=== PATIENT | male | born 1965 | race Caucasian/White ===

== ENCOUNTER → 2017-12-12 | Day surgery (SDC) | payer OTHER ==
[~2017-12-12] VITALS: Ht 180.3 cm; Wt 149.7 kg
--- NOTE | 2017-12-13 13:50 | Operative Report ---
Operative/Inv Procedure Report Surgery Date: 12/12/17 Name of Procedure: Open repair of giant incarcerated left inguinal scrotal hernia with Bard PerFix large plug and patch Pre-Operative Diagnosis: Incarcerated left inguinal scrotal hernia with hydrocele. Morbid obesity Post-Operative Diagnosis: Same, but no significant hydrocele identified Estimated Blood Loss: scant Surgeon/Emergency Dept Tech: Rosana GERBER,Stef Bowman PAC Anesthesia: general endotracheal tube, block, local half percent Marcaine plain IV Fluids: 1800 mL crystalloid Implants: Bard large PerFix plug and patch Drains: None Specimens: Hernia contents fat Complications: None Condition: Stable excellent Operative Indication: Harsha is a 52-year-old morbidly obese gentleman (BMI 46) with a long-standing left inguinal bulge extending down into the scrotum. Preop imaging with ultrasound suggested there was a rather small hernia component and a rather large hydrocele component although this was called into question given that the testicle itself was easily palpable. He comes in the operating room for a dual approach with myself and Dr. Josue. Operative/Procedure Note Note: The patient is taken to the operating room placed on the operating table supine position. Following an awake timeout he underwent a difficult glide scope requiring endotracheal intubation and even with this had a lot of floppy tissue around the cords making a challenging. His arms were extended out to the side and Venodyne boots in place and received IV Ancef 3 g right skin incisions. A tap block bilaterally was placed by anesthesia with ultrasound guidance. The lower abdomen both groins and all the genitalia was now prepped widely with Betadine gel prep and draped in usual sterile fashion and we draped out the genitalia initially. Now local anesthetic was infiltrated over the course of the planned incision in the left groin. Given the patient's size and the size of the hernia was difficult to know the bony landmarks. Incision was placed along the lines of Diane just inferior to where we could construe the course of the inguinal ligament to be. We carried incision down through subcutaneous And divided the superficial epigastric vessels with ligatures of 3-0 Vicryl. Fede 's fascia was now divided and we could appreciate the external like aponeurosis and were happy with our location of our incision. The patient's size required multiple retractors to be placed in order to see and reach the depth of the abdominal wall. I opened the fascia of the external Bleich lateral to the external ring and then down through the ring itself splitting the cremasterics I created a flap superiorly and inferiorly on the external Bleich and we could appreciate the ilioinguinal nerve coursing down onto the cremasterics on the cord. After splitting the cremasterics more widely we dissected the ilioinguinal nerve off and retracted with a vessel loop. Now splitting the cremasterics more fully inferiorly we can we could begin to appreciate the bulk of the hernia mass and began to reduce it up out of the upper scrotum using some manual compression externally and with some traction and dissection off the back of the cremasterics circumferentially. We were able to deliver up a large mass of fat and found this to be all hernia contents and no real hydrocele. To be sure we deliver the testicle up with the cord leaving it attached age gubernaculum and scrotal attachments and found there was no hydrocele. To facilitate dissection we left the testicle up in the field and we could appreciate the cord more easily. The cord was difficult to distinguish from the bulk of the fatty mass but gradually working backwards from the testicle were able to safely dissected the entirety of the cord off of the fatty mass. The fatty mass seemed to be retroperitoneal fat did not encounter any hernia sac but did have a look and feel of omentum. We dissected this all the way back up to the inguinal floor where it seemed to be coming through widely dilated internal ring. Interestingly the spermatic duct had been from the cord probably from the chronic herniation and we identified this separately dissecting it off of the bulk of the hernia contents and then looped all the cord together with a Soren drain area we could appreciate the genitofemoral nerve along the inguinal floor heading towards the tubercle. We now isolated the large fatty mass down to the neck of the internal ring and made several attempts to reduce this with the patient in more steep Trendelenburg position. After several attempts revealed this was likely retroperitoneal fat and therefore did not have a very vacant space in the abdomen. Since it was only fat we decided to amputate the bulk of this which we did with the LigaSure impact device. We did this in pieces working carefully to be sure there is no sliding component of hernia or any rectal peritoneal structure such as ureter. We were careful not to injure the cord. Once having completed this amputation we sent this specimen as hernia contents. The stump now the amputated fat easily reduced back through the internal internal ring and I began to dissect around the margins of the internal ring. Here I could see the epigastric vessels medially which had been pushed right up against the edge of the rectus. There was there was a minimal albeit intact direct without herniation. I placed a large Bard PerFix plug into the internal ring and secured at their with sutures of 0 Vicryl. This was done to the conjoined tendon superiorly laterally to the internal Bleich cremasterics remnant that had been amputated off and medially to the edge of the rectus with care taken to avoid the epigastric vessels. We cleared off the back of the inguinal ligament to appreciate the shelving edge. The cord was exiting behind the mesh the posterior sutures were difficult to place but was able to manage one suture to the shelving edge fascia as it seemed that the plug was trying to be pushed out posteriorly. This helped significantly get the mesh in place nicely for the remainder of the procedure. The fascia over the pubic tubercle was now dissected away with care taken to avoid injury to the genitofemoral neurovascular bundle. A patch was now placed overlapping the tubercle and secured with 2-0 Maxon suture to the fascia over the tubercle and then entered with interrupted sutures to the shelving edge of the inguinal ligament. I was able to palpate the location of the iliac vessels so as to avoid injury injuring them with suturing. Genitofemoral nerve exited out between the first and second sutures. The cord was now placed through the keyhole of the mesh along with the ilioinguinal nerve spattered it well and the mesh then secured superior medially to the rectus fascia with the same 2-0 Maxon suture and into the and then laterally to the conjoined tendon. More medially was difficult separate the external oblique off the underlying internal oblique to rather than risk injury to the any underlying nerve I secured them mesh just to the external oblique. This regard we did not close the external oblique. The tails of the mesh overlapped nicely laterally these were tucked under the edge of the split of the external oblique and secured to the lateral fascia again avoiding nerve. The testicle was returned to its usual position in the scrotum by Dr. Josue and we were careful to be sure it was not twisted in any way. Closure was now made of the Fede's fascia and then the skin closed with marixa. 4 x 4's OpSite and a scrotal support were placed. My hand over the repair during the entire period of extubation as the patient had moderate amount of coughing, secretions during this process. Overall he tolerated procedure well and was taken to the recovery room in satisfactory condition extubated with all sponge needle and instrument count confirmed as correct 2 at the completion of the case. The operation took over 2-1/2 hours given the nature of the hernia and the patient's morbid obesity, twice as long as it should ordinarily take and therefore qualifies for 22 modifier. Findings: Giant mass of likely retroperitoneal fat through the internal ring requiring amputation. No evidence of hydrocele. Patient's morbid obesity and the size and complexity of the hernia qualify for a 22 modifier Discharge Disposition: PACU
--- NOTE | 2017-12-14 08:44 | Operative Report ---
Operative/Inv Procedure Report Surgery Date: 12/12/17 Name of Procedure: L Inguinal and testicular exploration, combined with L inguinal hernia repair by Dr Stef Wayne Pre-Operative Diagnosis: L inguinal hernia and L hydrocele Post-Operative Diagnosis: L inguinal hernia Estimated Blood Loss: less than 50ml Surgeon/Reject Opener: Rosana GERBER,Joselo Florez Joseph MD, RAMYA Pina Anesthesia: general endotracheal tube Drains: none Complications: none Condition: Stable Operative Indication: Large L inguinal hernia and possible L hydrocele Operative/Procedure Note Note: The patient was taken to the OR and identified. He was placed in the supine position of the OR table. A time out was executed approprately. General anesthesia was induced via an endotracheal tube. The patient was prepped and draped in the usual fashion for L inguinal and scrotal surgery. A surgical pause was executed appropriately. A L inguinal incision was made by Dr Wayne and carried down to the external oblique. This was then opened and a large, fat-containing hernia revealed. Due to the size of the hernia extreme care was taken in disecting it free of the spermatic cord. Because the hernia extended into the scrotum, the hernia and L testicle were delivered up into the inguinal wound. No significant hydrocele was present and therefore a hydrocelectomy was not performed. The spermatic cord was disected off of the larger hernia starting distally and extending proximally. Eventually this was completed. Dr Wayne completed the hernia repair. The L testicle was then placed back into the scrotum taking care to not twist the spermatic cord. Wound closure was completed by Dr Wayne. Discharge Disposition: PACU
== END ==
LOC: STS 00:49
DX: K40.30 Unilateral inguinal hernia, with obstruction, without gangrene, not specified as recurrent (principal); N43.2 Other hydrocele; E66.01 Morbid (severe) obesity due to excess calories; Z68.42 Body mass index [BMI] 45.0-49.9, adult; I10 Essential (primary) hypertension; K21.9 Gastro-esophageal reflux disease without esophagitis; G47.33 Obstructive sleep apnea (adult) (pediatric); L40.50 Arthropathic psoriasis, unspecified
CPT/HCPCS: 88302; C9399; J0131; J0690; J1100; J1885; J2250; J2405; J3250; J3490